=== PATIENT | female | born 1950 | race Caucasian/White ===

== ENCOUNTER → 2024-11-12 12:15 | Outpatient (REF) | payer BC, SELFPAY | LOC: HWRCS 12:15 | PROVIDERS: ATTENDING PHYSICIAN Nurse Practitioner Gerontology; FAMILY PHYSICIAN Family Medicine | DX: R06.02 Shortness of breath (principal) | CPT/HCPCS: 78452; 93017; A9500; J2785 ==

== ENCOUNTER → 2024-11-14 06:53 | Outpatient (REF) | payer BC, SELFPAY | LOC: RCS 06:53 | PROVIDERS: ATTENDING PHYSICIAN Nurse Practitioner Gerontology; FAMILY PHYSICIAN Family Medicine | DX: R06.02 Shortness of breath (principal) | CPT/HCPCS: 93306 ==